=== PATIENT | male | born 1945 | race Caucasian/White ===

== ENCOUNTER 2021-12-26 09:29 | Outpatient (CLI) | payer MEDICARE, BC | END 2021-12-26 09:30 | disposition home or self-care (01) | LOC: CSHMRI 09:29 | PROVIDERS: ATTEND Internal Medicine | DX: R51.9 Headache, unspecified (principal); R25.1 Tremor, unspecified | CPT/HCPCS: 70551 ==

== ENCOUNTER 2022-12-01 10:17 | Outpatient (CLI) | payer MEDICARE, BC ==
[~2022-12-01 10:17] MED LIST: Magnevist 469MG/ML 20 ML VIAL ONE
== END 2022-12-01 10:18 | disposition home or self-care (01) ==
LOC: CSHMRI 10:17
PROVIDERS: ATTEND Internal Medicine
DX: G62.9 Polyneuropathy, unspecified (principal); R26.89 Other abnormalities of gait and mobility; R29.898 Other symptoms and signs involving the musculoskeletal system; R41.3 Other amnesia
CPT/HCPCS: 70553; A9579